=== PATIENT | male | born 1955 | race Two or more races ===

== ENCOUNTER 2019-08-29 10:14 | Inpatient (IN) | payer MEDICAID ==
[~2019-08-29] VITALS: Ht 162.6 cm; Wt 61.5 kg
[2019-08-29] MEDS ORDERED: IPRATROPIUM BROMIDE 0.5 MG/2.5 ML NEB SOLUTION NEB ONE (10:30)
[2019-08-29] MEDS ORDERED: ALBUTEROL SULFATE 5 MG/ML 20 ML NEB SOLN [BULK] NEB ONE (10:30)
[2019-08-29] MEDS ORDERED: 0.9% SODIUM CHLORIDE 10 ML SYRINGE IVP PRN (10:30)
[2019-08-29 10:37] LABS: ABG A-A DIFF O2 209.5 mmHg (10-20.0); ABG BASE EXCESS -0.6 mmol/L (-2.0-3.0); ABG CARBOXYHEMOGLOBIN 0.8 % (0.0-1.5); ABG HCO3 21.3 mmol/L (22.0-26.0); ABG METHEMOGLOBIN 0.3 % (0.0-1.5); ABG OXYGEN CONTENT 22.6 mL/dL (15.0-23.0); ABG OXYGEN SATURATION 99.6 % (95.0-98.0); ABG OXYHEMOGLOBIN 98.5 % (94.0-100.0); ABG TOTAL HEMOGLOBIN 15.5 G/dL (12.0-18.0); PO2, ARTERIAL BG 418.7 mmHg (66.0-74.0); SOURCE, BLOOD GAS ARTERIAL; TEMPERATURE, FAHRENHEIT, BG 94.2 FAHREN (96.0-98.6)
[2019-08-29 10:38] LABS: ABG PCO2 91 mmHg (35-45); ABG PH 7.112 (7.35-7.450); SITE, BLOOD GAS RT RADIAL
[2019-08-29 10:39] LABS: INSPIRATORY TIME, BG 0.9 SEC; O2 DEVICE,BLOOD GAS BIPAP (ROOM AIR); VENT MODE, BG Press. Support Vent. (ROOM AIR); VT, ABG 539 ml
[2019-08-29] MEDS ORDERED: SODIUM CHLORIDE 0.9% 2,000 ML IV ONE (10:45)
[2019-08-29 11:05] LABS: HEMOGLOBIN 15.5 g/dL (13.5-17.5); MEAN CORPUSCULAR HEMOGLOBIN 29.9 pg (26.0-34.0); MEAN CORPUSCULAR HGB CONC 32.3 G/dL (31.0-37.0); MEAN CORPUSCULAR VOLUME 93 fL (80-100); PLATELET COUNT (AUTO) 175 K/uL (150-450); RED BLOOD CELL COUNT(AUTO) 5.18 MIL/uL (4.50-5.90); RED CELL DISTRIBUTION WIDTH 13.5 % (11.5-14.5)
[2019-08-29 11:11] LABS: APPEARANCE,URINE CLOUDY (CLEAR); BILIRUBIN,URINE NEGATIVE (NEGATIVE); GLUCOSE, URINE (UA) 100 mg/dL (NEGATIVE); KETONES,URINE NEGATIVE (NEGATIVE); LEUKOCYTE ESTERASE ,URINE NEGATIVE (NEGATIVE); NITRATE,URINE NEGATIVE (NEGATIVE); OCCULT BLOOD,URINE LARGE (NEGATIVE); PROTEIN,URINE SEE CONFIRM (NEGATIVE)
[2019-08-29 11:15] LABS: SULFOSALICYLIC ACID,URINE 3+ (Negative)
[2019-08-29] MEDS ORDERED: MethylPREDNISolone SOD SUCC 125 MG/2 ML VIAL IVP ONE (11:15)
[2019-08-29 11:19] LABS: BACTERIA,URINE Few /HPF (None Seen); SQUAMOUS EPITHELIAL CELL,UR Few /LPF (None Seen)
[2019-08-29 11:30] LABS: INFLUENZA TYPE A NEGATIVE FOR TYPE A (NEGATIVE); INFLUENZA TYPE B NEGATIVE FOR TYPE B (NEGATIVE)
[2019-08-29 11:36] LABS: INR 1.5 (0.9-1.1); PROTHROMBIN TIME 15.4 SEC (9.4-11.6)
[2019-08-29 11:41] LABS: ALBUMIN 3.3 g/dL (3.4-5.0); ALKALINE PHOSPHATASE 153 U/L (46-116); ANION GAP 8 mmol/L (8-16); CALCIUM, TOTAL 8.2 mg/dL (8.8-10.5); CARBON DIOXIDE 32 mmol/L (22-29); CHLORIDE 94 mmol/L (98-107); CREATINE KINASE, TOTAL ONLY 398 U/L (39-308); CREATININE 2.37 mg/dL (0.60-1.30); GLOMERULAR FILTR. RATE CALC 24 mL/min (>60); POTASSIUM 4.1 mmol/L (3.5-5.1); SODIUM SERUM 134 mmol/L (136-145); TOTAL PROTEIN, SERUM 8.3 g/dL (6.4-8.2)
[2019-08-29] MEDS ORDERED: PIPERACILLIN/TAZO 3.375 GM/D5W 50 ML IV ONE (11:45)
[2019-08-29] MEDS ORDERED: VANCOMYCIN HCL 1.5 GM in DEXTROSE 5%-WATER 250 ML IV ONE (11:45)
[2019-08-29 11:46] LABS: GLUCOSE,RANDOM 444 mg/dL (70-110); UREA NITROGEN, BLOOD 106 mg/dL (7-18)
[2019-08-29 11:51] LABS: BAND NEUTROPHILS % (MANUAL) 21 % (0-5); LYMPHOCYTES % (MANUAL) 10 % (22-44); METAMYELOCYTES % 1 % (0-0); MONOCYTES % (MANUAL) 13 % (2-9); REACTIVE LYMPHOCYTES 1 % (0-0); SEGMENTED NEUTROPHILS % 54 % (40-70)
[2019-08-29 11:57] LABS: ALANINE AMINOTRANSFERASE 392 U/L (12-78); ASPARTATE AMINOTRANSFERASE 452 U/L (15-37)
[2019-08-29] MEDS ORDERED: LORazepam 2 MG/ML VIAL IVP ONE (12:00)
[2019-08-29] MEDS ORDERED: SODIUM CHLORIDE 0.9% 1,000 ML IV ONE (12:30)
[2019-08-29 12:32] LABS: B-TYPE NATRIURETIC PEPTIDE 1620 pg/mL (0-100)
[2019-08-29 12:50] LABS: D-DIMER 2.87 mg/L FEU (0.00-0.50)
[2019-08-29] MEDS ORDERED: HEPARIN SODIUM 25000 UNITS/D5W 250 ML IV PRN (13:26)
[2019-08-29] MEDS ORDERED: HEPARIN SODIUM,PORCINE 5,000 UNITS/ML VIAL IVP PRN ×2 (13:30)
[2019-08-29] MEDS ORDERED: HEPARIN SODIUM,PORCINE 5,000 UNITS/ML VIAL IVP ONE (13:30)
[2019-08-29 13:56] LABS: ABG A-A DIFF O2 166.3 mmHg (10-20.0); ABG CARBOXYHEMOGLOBIN 0.7 % (0.0-1.5); ABG HCO3 21.8 mmol/L (22.0-26.0); ABG METHEMOGLOBIN 0.5 % (0.0-1.5); ABG OXYGEN CONTENT 20.2 mL/dL (15.0-23.0); ABG OXYGEN SATURATION 98.3 % (95.0-98.0); ABG OXYHEMOGLOBIN 97.1 % (94.0-100.0); ABG TOTAL HEMOGLOBIN 14.6 G/dL (12.0-18.0); PO2, ARTERIAL BG 152.3 mmHg (66.0-74.0); SOURCE, BLOOD GAS ARTERIAL; TEMPERATURE, FAHRENHEIT, BG 96.7 FAHREN (96.0-98.6)
[2019-08-29 13:57] LABS: ABG PCO2 101 mmHg (35-45); ABG PH 7.086 (7.35-7.450); SITE, BLOOD GAS RT RADIAL
[2019-08-29 13:58] LABS: O2 DEVICE,BLOOD GAS BIPAP (ROOM AIR)
[2019-08-29] MEDS ORDERED: ONDANSETRON HCL 4 MG/2 ML VIAL IVP PRN ×2 (14:00→17:30)
[2019-08-29] MEDS ORDERED: ACETAMINOPHEN 325 MG TABLET PO PRN ×2 (14:00→17:30)
[2019-08-29] MEDS ORDERED: RAPID SEQUENCE KIT [RSI] 1 EACH KIT ONE (14:05)
[2019-08-29] MEDS ORDERED: SUCCINYLCHOLINE CHLORIDE 20 MG/ML 10 ML VIAL ONE (14:06)
[2019-08-29] MEDS ORDERED: ROCURONIUM BROMIDE 10 MG/ML 5 ML VIAL ONE (14:06)
[2019-08-29 14:07] LABS: HEMATOCRIT 44.4 % (41-53); HEMOGLOBIN 14.5 g/dL (13.5-17.5); MEAN CORPUSCULAR HEMOGLOBIN 30.3 pg (26.0-34.0); MEAN CORPUSCULAR HGB CONC 32.7 G/dL (31.0-37.0); MEAN CORPUSCULAR VOLUME 93 fL (80-100); PLATELET COUNT (AUTO) 149 K/uL (150-450); RED BLOOD CELL COUNT(AUTO) 4.79 MIL/uL (4.50-5.90); RED CELL DISTRIBUTION WIDTH 13.3 % (11.5-14.5)
[2019-08-29] MEDS: PROPOFOL 1000 MG/ISO-OSM 100 ML IV PRN ×2 (14:28→23:37)
[2019-08-29 14:38] LABS: INR 1.4 (0.9-1.1); PROTHROMBIN TIME 14.1 SEC (9.4-11.6)
[2019-08-29] MEDS ORDERED: [UNRECOGNIZED DRUG - REMARK] IV ONE ×3 (15:00)
[2019-08-29 15:15] LABS: BAND NEUTROPHILS % (MANUAL) 9 % (0-5); LYMPHOCYTES % (MANUAL) 8 % (22-44); MONOCYTES % (MANUAL) 13 % (2-9); SEGMENTED NEUTROPHILS % 70 % (40-70)
[2019-08-29 15:32] LABS: AMPHET/METH SCREEN,URINE NEGATIVE (NEGATIVE); BARBITURATE SCREEN, URINE NEGATIVE (NEGATIVE); BENZODIAZEPINES SCREEN,URINE NEGATIVE (NEGATIVE); CANNABINOID SCREEN,URINE NEGATIVE (NEGATIVE); COCAINE SCREEN,URINE NEGATIVE (NEGATIVE); CREATININE,URINE RANDOM 154.3 mg/dL (30.0-125.0); METHADONE SCREEN, URINE NEGATIVE (NEGATIVE); OPIATE SCREEN,URINE NEGATIVE (NEGATIVE); SODIUM,URINE RANDOM 17 mmol/l (20-110)
[2019-08-29 15:33] LABS: PHENCYCLIDINE SCREEN,URINE NEGATIVE (NEGATIVE)
[2019-08-29 16:48] LABS: ABG BASE EXCESS 2.6 mmol/L (-2.0-3.0); ABG CARBOXYHEMOGLOBIN 0.5 % (0.0-1.5); ABG HCO3 24.7 mmol/L (22.0-26.0); ABG METHEMOGLOBIN 0.5 % (0.0-1.5); ABG OXYGEN SATURATION 98.1 % (95.0-98.0); ABG OXYHEMOGLOBIN 97.1 % (94.0-100.0); ABG TOTAL HEMOGLOBIN 14.5 G/dL (12.0-18.0); PO2, ARTERIAL BG 137.8 mmHg (66.0-74.0); SOURCE, BLOOD GAS ARTERIAL; TEMPERATURE, FAHRENHEIT, BG 98.4 FAHREN (96.0-98.6)
[2019-08-29 16:49] LABS: ABG PCO2 78 mmHg (35-45); ABG PH 7.209 (7.35-7.450); O2 DEVICE,BLOOD GAS VENTILATOR (ROOM AIR); PEEP,BG 5 cm H2O; SITE, BLOOD GAS RT RADIAL; VENT MODE, BG Press. Control Vent (ROOM AIR)
[2019-08-29] MEDS ORDERED: PHENYLEPHRINE HCL IN 0.9% NACL 400 MCG/10 ML SYRINGE IVP ONE (16:59)
[2019-08-29] MEDS ORDERED: PHENYLEPHRINE 200 MG/D5%-WATER 250 ML IV PRN (17:15)
[2019-08-29] MEDS ORDERED: ETOMIDATE 2 MG/ML 10 ML VIAL IV ONE (17:24)
[2019-08-29] MEDS ORDERED: MORPHINE SULFATE 2 MG/ML SYRINGE IVP PRN (17:30)
[2019-08-29] MEDS ORDERED: DEXTROSE 50%-WATER 25 GM/50 ML SYRINGE IVP PRN (17:30)
[2019-08-29] MEDS ORDERED: IPRATROPIUM BROMIDE 0.5 MG/2.5 ML NEB SOLUTION NEB PRN (17:30)
[2019-08-29] MEDS ORDERED: MAGNESIUM HYDROXIDE SUSPENSION 30 ML UDCUP PO PRN (17:30)
[2019-08-29] MEDS ORDERED: ZOLPIDEM TARTRATE 5 MG TABLET PO PRN (17:30)
[2019-08-29] MEDS ORDERED: ALBUTEROL SULFATE 2.5 MG/0.5 ML NEB SOLUTION NEB PRN (17:30)
[2019-08-29] MEDS ORDERED: BISACODYL 10 MG RECTAL RECTAL SUPPOSITORY PR PRN (17:30)
[2019-08-29] MEDS: MethylPREDNISolone SOD SUCC 125 MG/2 ML VIAL IVP SCH (18:25)
[2019-08-29 20:55] VITALS: BP 102/66
[2019-08-29 21:13] LABS: GLUCOSE,POINT OF CARE 420 MG/DL (70-110)
[2019-08-29] MEDS: ALBUTEROL SULFATE 2.5 MG/0.5 ML NEB SOLUTION NEB SCH (21:18)
[2019-08-29] MEDS: IPRATROPIUM BROMIDE 0.5 MG/2.5 ML NEB SOLUTION NEB SCH (21:18)
[2019-08-29] MEDS: AZITHROMYCIN 500 MG/NS 250 ML IV SCH (21:20)
[2019-08-29] MEDS: PIPERACILLIN SODIUM/TAZOBACTAM 2.25 GM in DEXTROSE 5%-WATER 50 ML IV SCH (21:20)
[2019-08-29] MEDS: INSULIN LISPRO 100 UNITS/ML SQ PRN (21:25)
[2019-08-29] MEDS: FentaNYL CITRATE PF 500 MCG in DEXTROSE 5%-WATER 90 ML IV PRN (21:28)
[2019-08-29] MEDS: DOCUSATE SODIUM 100 MG CAPSULE PO SCH (21:45)
[2019-08-29] MEDS: BENZONATATE 100 MG CAPSULE PO SCH (21:45)
[2019-08-29] MEDS: GuaiFENesin SR 600 MG ER TABLET PO SCH (21:45)
[2019-08-29 21:50] LABS: GLUCOSE,POINT OF CARE 394 MG/DL (70-110)
[2019-08-29] MEDS ORDERED: INFLUENZA VIRUS VACCINE QVS 2019-20 (3YR+)/PF 60 MCG/0.5 ML SYRINGE IM ONE (23:00)
[2019-08-29] MEDS ORDERED: PNEUMOCOCCAL VACCINE POLYVALENT 0.5 ML VIAL [PPSV23] IM ONE (23:00)
[2019-08-30] VITALS: BP 93/50
[2019-08-30] MEDS ORDERED: HEPARIN SODIUM,PORCINE 5,000 UNITS/ML VIAL SQ SCH
[2019-08-30] MEDS: MethylPREDNISolone SOD SUCC 125 MG/2 ML VIAL IVP SCH ×5 (00:07→23:12)
[2019-08-30] MEDS: INSULIN LISPRO 100 UNITS/ML SQ PRN ×4 (00:42→17:33)
[2019-08-30] MEDS: IPRATROPIUM BROMIDE 0.5 MG/2.5 ML NEB SOLUTION NEB SCH ×4 (01:02→19:30)
[2019-08-30] MEDS: ALBUTEROL SULFATE 2.5 MG/0.5 ML NEB SOLUTION NEB SCH ×4 (01:02→19:30)
[2019-08-30 01:21] VITALS: BP 101/53
[2019-08-30] MEDS ORDERED: HEPARIN SODIUM 25000 UNITS/D5W 250 ML IV PRN (01:47)
[2019-08-30] MEDS ORDERED: HEPARIN SODIUM,PORCINE 5,000 UNITS/ML VIAL IVP PRN ×2 (02:00)
[2019-08-30] MEDS: PIPERACILLIN SODIUM/TAZOBACTAM 2.25 GM in DEXTROSE 5%-WATER 50 ML IV SCH ×4 (02:48→20:55)
[2019-08-30] MEDS: PROPOFOL 1000 MG/ISO-OSM 100 ML IV PRN ×4 (04:34→23:13)
[2019-08-30 05:42] LABS: CALCIUM, TOTAL 7.5 mg/dL (8.8-10.5); CREATININE 1.76 mg/dL (0.60-1.30); POTASSIUM 3.6 mmol/L (3.5-5.1)
[2019-08-30 06:52] LABS: HEMATOCRIT 37.3 % (41-53); HEMOGLOBIN 12.4 g/dL (13.5-17.5); MEAN CORPUSCULAR HEMOGLOBIN 30.1 pg (26.0-34.0); MEAN CORPUSCULAR HGB CONC 33.3 G/dL (31.0-37.0); MEAN CORPUSCULAR VOLUME 90 fL (80-100); PLATELET COUNT (AUTO) 152 K/uL (150-450); RED BLOOD CELL COUNT(AUTO) 4.12 MIL/uL (4.50-5.90); RED CELL DISTRIBUTION WIDTH 13.3 % (11.5-14.5)
[2019-08-30 07:10] LABS: BAND NEUTROPHILS % (MANUAL) 7 % (0-5); LYMPHOCYTES % (MANUAL) 11 % (22-44); MONOCYTES % (MANUAL) 6 % (2-9); SEGMENTED NEUTROPHILS % 76 % (40-70)
[2019-08-30 08:00] VITALS: BP 92/49
[2019-08-30] MEDS ORDERED: VANCOMYCIN HCL 750 MG in DEXTROSE 5%-WATER 250 ML IV SCH (08:00)
[2019-08-30] MEDS: PANTOPRAZOLE SODIUM 40 MG DR TABLET PO SCH (08:41)
[2019-08-30] MEDS: DOCUSATE SODIUM 100 MG CAPSULE PO SCH ×2 (08:41→20:55)
[2019-08-30] MEDS: GuaiFENesin SR 600 MG ER TABLET PO SCH ×2 (08:41→20:55)
[2019-08-30] MEDS: BENZONATATE 100 MG CAPSULE PO SCH ×3 (08:41→20:55)
[2019-08-30] MEDS ORDERED: [UNRECOGNIZED DRUG - REMARK] IV SCH ×4 (11:30)
[2019-08-30 11:45] LABS: ABG A-A DIFF O2 114.3 mmHg (10-20.0); ABG BASE EXCESS 5.8 mmol/L (-2.0-3.0); ABG CARBOXYHEMOGLOBIN 0.6 % (0.0-1.5); ABG HCO3 29.9 mmol/L (22.0-26.0); ABG METHEMOGLOBIN 0.3 % (0.0-1.5); ABG OXYGEN CONTENT 20.7 mL/dL (15.0-23.0); ABG OXYGEN SATURATION 98.7 % (95.0-98.0); ABG OXYHEMOGLOBIN 97.8 % (94.0-100.0); ABG PCO2 35 mmHg (35-45); ABG PH 7.528 (7.35-7.450); ABG TOTAL HEMOGLOBIN 14.9 G/dL (12.0-18.0); PO2, ARTERIAL BG 130.5 mmHg (66.0-74.0); SOURCE, BLOOD GAS ARTERIAL; TEMPERATURE, FAHRENHEIT, BG 98.8 FAHREN (96.0-98.6)
[2019-08-30 12:00] VITALS: BP 100/52
[2019-08-30 12:21] LABS: SITE, BLOOD GAS RT RADIAL
[2019-08-30 12:22] LABS: O2 DEVICE,BLOOD GAS VENTILATOR (ROOM AIR); PEEP,BG 5 cm H2O; SPONTANEOUS VT, BG 632 ml; VENT MODE, BG Press. Control Vent (ROOM AIR)
[2019-08-30] MEDS: FentaNYL CITRATE PF 500 MCG in DEXTROSE 5%-WATER 90 ML IV PRN (12:32)
[2019-08-30 16:00] VITALS: BP 111/56
[2019-08-30 16:38] LABS: ABG A-A DIFF O2 133.8 mmHg (10-20.0); ABG BASE EXCESS 2.9 mmol/L (-2.0-3.0); ABG CARBOXYHEMOGLOBIN 0.4 % (0.0-1.5); ABG HCO3 27.1 mmol/L (22.0-26.0); ABG METHEMOGLOBIN 0.3 % (0.0-1.5); ABG OXYGEN SATURATION 98.2 % (95.0-98.0); ABG OXYHEMOGLOBIN 97.5 % (94.0-100.0); ABG PCO2 37 mmHg (35-45); ABG PH 7.473 (7.35-7.450); PO2, ARTERIAL BG 108.9 mmHg (66.0-74.0); SOURCE, BLOOD GAS ARTERIAL; TEMPERATURE, FAHRENHEIT, BG 98.6 FAHREN (96.0-98.6)
[2019-08-30 16:58] LABS: INSPIRATORY TIME, BG 1 SEC; O2 DEVICE,BLOOD GAS VENTILATOR (ROOM AIR); PEEP,BG 5 cm H2O; SITE, BLOOD GAS RT RADIAL; SPONTANEOUS VT, BG 530 ml; VENT MODE, BG Press. Control Vent (ROOM AIR)
[2019-08-30] MEDS: [UNRECOGNIZED DRUG - REMARK] IV SCH ×3 (17:27)
[2019-08-30 17:36] LABS: GLUCOSE,POINT OF CARE 281 MG/DL (70-110)
[2019-08-30 17:36] LABS: GLUCOSE,POINT OF CARE 361 MG/DL (70-110)
[2019-08-30 17:36] LABS: GLUCOSE,POINT OF CARE 254 MG/DL (70-110)
[2019-08-30 17:36] LABS: GLUCOSE,POINT OF CARE 195 MG/DL (70-110)
[2019-08-30 20:00] VITALS: BP 112/52
[2019-08-30] MEDS: AZITHROMYCIN 500 MG/NS 250 ML IV SCH (20:15)
[2019-08-30] MEDS: HYPROMELLOSE 0.5% 15 ML OPHTHALMIC SOLUTION OU PRN (23:23)
[2019-08-30] MEDS: INSULIN REGULAR, HUMAN 100 UNITS/ML SQ PRN (23:27)
[2019-08-30 23:41] LABS: GLUCOSE,POINT OF CARE 199 MG/DL (70-110)
[2019-08-31] VITALS: BP 91/43
[2019-08-31] MEDS: ALBUTEROL SULFATE 2.5 MG/0.5 ML NEB SOLUTION NEB SCH ×4 (01:53→20:05)
[2019-08-31] MEDS: IPRATROPIUM BROMIDE 0.5 MG/2.5 ML NEB SOLUTION NEB SCH ×4 (01:53→20:05)
[2019-08-31] MEDS: PIPERACILLIN SODIUM/TAZOBACTAM 2.25 GM in DEXTROSE 5%-WATER 50 ML IV SCH ×4 (02:26→21:41)
[2019-08-31] MEDS ORDERED: SODIUM CHLORIDE 0.9% 500 ML IV ONE (02:32)
[2019-08-31 03:07] LABS: HIV 1-2 SCREEN 4TH GEN W/RFLX Non Reactive (Non Reactive)
[2019-08-31] MEDS: PROPOFOL 1000 MG/ISO-OSM 100 ML IV PRN ×4 (03:34→22:01)
[2019-08-31] MEDS: HYPROMELLOSE 0.5% 15 ML OPHTHALMIC SOLUTION OU PRN ×3 (03:46→21:59)
[2019-08-31 04:00] VITALS: BP 96/46
[2019-08-31 04:54] LABS: HEMATOCRIT 37.5 % (41-53); HEMOGLOBIN 12.5 g/dL (13.5-17.5); MEAN CORPUSCULAR HEMOGLOBIN 30.5 pg (26.0-34.0); MEAN CORPUSCULAR HGB CONC 33.4 G/dL (31.0-37.0); MEAN CORPUSCULAR VOLUME 92 fL (80-100); PLATELET COUNT (AUTO) 155 K/uL (150-450); RED BLOOD CELL COUNT(AUTO) 4.09 MIL/uL (4.50-5.90); RED CELL DISTRIBUTION WIDTH 13.9 % (11.5-14.5)
[2019-08-31 05:13] LABS: ALBUMIN 2.4 g/dL (3.4-5.0); BILIRUBIN,TOTAL 0.8 mg/dL (0.1-1.0); CALCIUM, TOTAL 7.2 mg/dL (8.8-10.5); CREATININE 1.85 mg/dL (0.60-1.30); MAGNESIUM 3.2 mg/dL (1.80-2.40); PHOSPHORUS 3.3 mg/dL (2.5-4.9); POTASSIUM 4.3 mmol/L (3.5-5.1); VANCOMYCIN,RANDOM 13.1 mcg/mL (25.0-50.0)
[2019-08-31] MEDS: MethylPREDNISolone SOD SUCC 125 MG/2 ML VIAL IVP SCH ×3 (05:13→18:30)
[2019-08-31] MEDS: INSULIN REGULAR, HUMAN 100 UNITS/ML SQ PRN (05:14)
[2019-08-31 05:20] LABS: BAND NEUTROPHILS % (MANUAL) 13 % (0-5); LYMPHOCYTES % (MANUAL) 1 % (22-44); MONOCYTES % (MANUAL) 4 % (2-9); SEGMENTED NEUTROPHILS % 82 % (40-70)
[2019-08-31 05:34] LABS: GLUCOSE,POINT OF CARE 269 MG/DL (70-110)
[2019-08-31] MEDS: [UNRECOGNIZED DRUG - REMARK] IV SCH ×6 (07:42→21:55)
[2019-08-31] MEDS: VANCOMYCIN HCL 1.25 GM in DEXTROSE 5%-WATER 250 ML IV SCH (07:45)
[2019-08-31 08:00] VITALS: BP 101/48
[2019-08-31] MEDS: FentaNYL CITRATE PF 500 MCG in DEXTROSE 5%-WATER 90 ML IV PRN (08:26)
[2019-08-31] MEDS: DOCUSATE SODIUM 100 MG CAPSULE PO SCH ×2 (09:20→21:41)
[2019-08-31] MEDS: PANTOPRAZOLE SODIUM 40 MG DR TABLET PO SCH (09:21)
[2019-08-31] MEDS: GuaiFENesin SR 600 MG ER TABLET PO SCH ×2 (09:21→21:41)
[2019-08-31] MEDS: BENZONATATE 100 MG CAPSULE PO SCH ×3 (09:21→21:41)
[2019-08-31] MEDS ORDERED: DEXTROSE 50%-WATER 25 GM/50 ML SYRINGE IVP PRN (11:00)
[2019-08-31 12:00] VITALS: BP 101/48
[2019-08-31] MEDS: INSULIN LISPRO 100 UNITS/ML SQ PRN ×3 (13:20→20:53)
[2019-08-31 14:42] LABS: ABG A-A DIFF O2 112.7 mmHg (10-20.0); ABG BASE EXCESS 0.7 mmol/L (-2.0-3.0); ABG CARBOXYHEMOGLOBIN 0.5 % (0.0-1.5); ABG HCO3 25.3 mmol/L (22.0-26.0); ABG METHEMOGLOBIN 0.3 % (0.0-1.5); ABG OXYGEN CONTENT 17.7 mL/dL (15.0-23.0); ABG OXYGEN SATURATION 97.2 % (95.0-98.0); ABG OXYHEMOGLOBIN 96.4 % (94.0-100.0); ABG PCO2 37 mmHg (35-45); ABG PH 7.446 (7.35-7.450); PO2, ARTERIAL BG 94.2 mmHg (66.0-74.0); SOURCE, BLOOD GAS ARTERIAL; TEMPERATURE, FAHRENHEIT, BG 98.6 FAHREN (96.0-98.6)
[2019-08-31 14:43] LABS: O2 DEVICE,BLOOD GAS VENTILATOR (ROOM AIR); PEEP,BG 5 cm H2O; SITE, BLOOD GAS RT RADIAL; VENT MODE, BG PCV/AC (ROOM AIR); VT, ABG 573 ml
[2019-08-31 14:44] LABS: SPONTANEOUS VT, BG 574 ml
[2019-08-31 16:00] VITALS: BP 101/48
[2019-08-31 20:00] VITALS: BP 132/63
[2019-08-31] MEDS: AZITHROMYCIN 500 MG/NS 250 ML IV SCH (20:18)
[2019-08-31] MEDS: INSULIN GLARGINE,HUM.REC.ANLOG 100 UNITS/ML SQ SCH (20:52)
[2019-08-31 22:51] LABS: GLUCOSE,POINT OF CARE 342 MG/DL (70-110)
[2019-08-31 22:51] LABS: GLUCOSE,POINT OF CARE 371 MG/DL (70-110)
[2019-08-31 22:51] LABS: GLUCOSE,POINT OF CARE 332 MG/DL (70-110)
[2019-09-01] VITALS (7 sets, daily range): BP systolic 108–125; BP diastolic 52–64
[2019-09-01] MEDS: INSULIN LISPRO 100 UNITS/ML SQ PRN ×5 (00:34→21:10)
[2019-09-01] MEDS ORDERED: SODIUM CHLORIDE 0.9% 250 ML IV ONE (01:24)
[2019-09-01] MEDS: ALBUTEROL SULFATE 2.5 MG/0.5 ML NEB SOLUTION NEB SCH ×4 (02:28→19:45)
[2019-09-01] MEDS: IPRATROPIUM BROMIDE 0.5 MG/2.5 ML NEB SOLUTION NEB SCH ×4 (02:28→19:45)
[2019-09-01] MEDS: PIPERACILLIN SODIUM/TAZOBACTAM 2.25 GM in DEXTROSE 5%-WATER 50 ML IV SCH ×4 (02:56→21:11)
[2019-09-01] MEDS: PROPOFOL 1000 MG/ISO-OSM 100 ML IV PRN (02:57)
[2019-09-01 05:35] LABS: CALCIUM, TOTAL 7.4 mg/dL (8.8-10.5); CREATININE 1.45 mg/dL (0.60-1.30); POTASSIUM 4.8 mmol/L (3.5-5.1)
[2019-09-01] MEDS: MethylPREDNISolone SOD SUCC 125 MG/2 ML VIAL IVP SCH ×4 (06:06→18:51)
[2019-09-01 06:50] LABS: GLUCOSE,POINT OF CARE 218 MG/DL (70-110)
[2019-09-01 06:50] LABS: GLUCOSE,POINT OF CARE 189 MG/DL (70-110)
[2019-09-01] MEDS: VANCOMYCIN HCL 1.25 GM in DEXTROSE 5%-WATER 250 ML IV SCH (08:30)
[2019-09-01 09:48] LABS: MAGNESIUM 2.9 mg/dL (1.80-2.40)
[2019-09-01] MEDS: DOCUSATE SODIUM 100 MG CAPSULE PO SCH ×2 (10:35→20:57)
[2019-09-01] MEDS: PANTOPRAZOLE SODIUM 40 MG DR TABLET PO SCH (10:35)
[2019-09-01] MEDS: BENZONATATE 100 MG CAPSULE PO SCH ×3 (10:35→21:11)
[2019-09-01] MEDS: GuaiFENesin SR 600 MG ER TABLET PO SCH ×2 (10:35→21:11)
[2019-09-01] MEDS: FentaNYL CITRATE PF 500 MCG in DEXTROSE 5%-WATER 90 ML IV PRN (11:20)
[2019-09-01 14:11] LABS: QUANTIFERON+, Nil Value 0.02 IU/mL; QUANTIFERON+,Mitogen Value 0.03 IU/mL; QUANTIFERON+,TB1 Antigen Value 0.02 IU/mL; QUANTIFERON, TB GOLD PLUS Indeterminate (Negative)
[2019-09-01 18:58] LABS: GLUCOSE,POINT OF CARE 292 MG/DL (70-110)
[2019-09-01 18:58] LABS: GLUCOSE,POINT OF CARE 312 MG/DL (70-110)
[2019-09-01] MEDS: AZITHROMYCIN 500 MG/NS 250 ML IV SCH (20:04)
[2019-09-01] MEDS ORDERED: SODIUM CHLORIDE 0.9% 100 ML ONE ×2 (21:03→21:04)
[2019-09-01] MEDS: INSULIN GLARGINE,HUM.REC.ANLOG 100 UNITS/ML SQ SCH (21:09)
[2019-09-01 21:35] LABS: APPEARANCE,URINE CLOUDY (CLEAR); BILIRUBIN,URINE NEGATIVE (NEGATIVE); GLUCOSE, URINE (UA) >=1000 mg/dL (NEGATIVE); KETONES,URINE NEGATIVE (NEGATIVE); LEUKOCYTE ESTERASE ,URINE NEGATIVE (NEGATIVE); NITRATE,URINE NEGATIVE (NEGATIVE); OCCULT BLOOD,URINE LARGE (NEGATIVE); PROTEIN,URINE TRACE (NEGATIVE)
[2019-09-01 22:11] LABS: WBC,URINE 0-2 /HPF (0-5)
[2019-09-01 22:12] LABS: BACTERIA,URINE Few /HPF (None Seen); SQUAMOUS EPITHELIAL CELL,UR Few /LPF (None Seen); URIC ACID CRYSTALS,URINE Many /LPF (None Seen)
[2019-09-02] VITALS: BP 114/49
[2019-09-02] MEDS: MethylPREDNISolone SOD SUCC 125 MG/2 ML VIAL IVP SCH ×4 (00:32→18:08)
[2019-09-02] MEDS: INSULIN LISPRO 100 UNITS/ML SQ PRN ×5 (00:33→23:34)
[2019-09-02] MEDS: PROPOFOL 1000 MG/ISO-OSM 100 ML IV PRN ×4 (00:36→20:50)
[2019-09-02] MEDS: ALBUTEROL SULFATE 2.5 MG/0.5 ML NEB SOLUTION NEB SCH ×4 (02:33→20:53)
[2019-09-02] MEDS: IPRATROPIUM BROMIDE 0.5 MG/2.5 ML NEB SOLUTION NEB SCH ×4 (02:33→20:53)
[2019-09-02 03:06] LABS: GLUCOSE,POINT OF CARE 207 MG/DL (70-110)
[2019-09-02 03:06] LABS: GLUCOSE,POINT OF CARE 328 MG/DL (70-110)
[2019-09-02] MEDS: PIPERACILLIN SODIUM/TAZOBACTAM 2.25 GM in DEXTROSE 5%-WATER 50 ML IV SCH ×2 (03:54→08:27)
[2019-09-02 04:00] VITALS: BP 137/54
[2019-09-02 05:04] LABS: BASOPHILS % (AUTO) 0.1 % (0.0-2.0); EOSINOPHILS % (AUTO) 0 % (1.0-6.0); HEMATOCRIT 40.8 % (41-53); HEMOGLOBIN 13.2 g/dL (13.5-17.5); LYMPHOCYTES # (AUTO) 0.4 K/uL (1.0-4.8); LYMPHOCYTES % (AUTO) 2.1 % (22.0-44.0); MEAN CORPUSCULAR HEMOGLOBIN 29.5 pg (26.0-34.0); MEAN CORPUSCULAR HGB CONC 32.4 G/dL (31.0-37.0); MEAN CORPUSCULAR VOLUME 91 fL (80-100); MONOCYTES # (AUTO) 1.6 K/uL (0.1-1.0); MONOCYTES % (AUTO) 8.1 % (2.0-9.0); NEUTROPHILS # (AUTO) 17.4 K/uL (1.8-7.7); PLATELET COUNT (AUTO) 139 K/uL (150-450); RED BLOOD CELL COUNT(AUTO) 4.48 MIL/uL (4.50-5.90); RED CELL DISTRIBUTION WIDTH 13.8 % (11.5-14.5)
[2019-09-02 05:06] LABS: NEUTROPHILS % (AUTO) 89.7 % (40.0-70.0)
[2019-09-02 05:20] LABS: ALANINE AMINOTRANSFERASE 744 U/L (12-78); ALBUMIN 2.3 g/dL (3.4-5.0); ALKALINE PHOSPHATASE 115 U/L (46-116); ANION GAP 2 mmol/L (8-16); ASPARTATE AMINOTRANSFERASE 146 U/L (15-37); BILIRUBIN,TOTAL 0.5 mg/dL (0.1-1.0); CALCIUM, TOTAL 7.6 mg/dL (8.8-10.5); CARBON DIOXIDE 32 mmol/L (22-29); CHLORIDE 106 mmol/L (98-107); CREATININE 1.11 mg/dL (0.60-1.30); GLOMERULAR FILTR. RATE CALC > 60 mL/min (>60); GLUCOSE,RANDOM 248 mg/dL (70-110); SODIUM SERUM 140 mmol/L (136-145); TOTAL PROTEIN, SERUM 6.1 g/dL (6.4-8.2); UREA NITROGEN, BLOOD 44 mg/dL (7-18)
[2019-09-02 05:26] LABS: GLUCOSE,POINT OF CARE 235 MG/DL (70-110)
[2019-09-02 08:00] VITALS: BP 154/62
[2019-09-02] MEDS ORDERED: SODIUM CHLORIDE 0.9% 250 ML IV ONE (08:11)
[2019-09-02] MEDS: VANCOMYCIN HCL 1.25 GM in DEXTROSE 5%-WATER 250 ML IV SCH (08:27)
[2019-09-02] MEDS: DOCUSATE SODIUM 100 MG CAPSULE PO SCH ×2 (08:28→19:15)
[2019-09-02] MEDS: GuaiFENesin SR 600 MG ER TABLET PO SCH ×2 (09:39→20:22)
[2019-09-02] MEDS: PANTOPRAZOLE SODIUM 40 MG DR TABLET PO SCH (09:39)
[2019-09-02] MEDS: BENZONATATE 100 MG CAPSULE PO SCH ×3 (09:39→20:22)
[2019-09-02] MEDS: FentaNYL CITRATE PF 500 MCG in DEXTROSE 5%-WATER 90 ML IV PRN (10:47)
[2019-09-02 12:00] VITALS: BP 126/48
[2019-09-02 16:00] VITALS: BP 136/56
[2019-09-02] MEDS: PIPERACILLIN/TAZO 3.375 GM/D5W 50 ML IV SCH ×2 (16:20→21:46)
[2019-09-02 17:39] LABS: ABG A-A DIFF O2 121.8 mmHg (10-20.0); ABG BASE EXCESS 4.2 mmol/L (-2.0-3.0); ABG CARBOXYHEMOGLOBIN 0.7 % (0.0-1.5); ABG HCO3 27.7 mmol/L (22.0-26.0); ABG METHEMOGLOBIN 0.3 % (0.0-1.5); ABG OXYGEN CONTENT 19.2 mL/dL (15.0-23.0); ABG OXYGEN SATURATION 95.9 % (95.0-98.0); ABG OXYHEMOGLOBIN 94.9 % (94.0-100.0); ABG PCO2 43 mmHg (35-45); ABG PH 7.435 (7.35-7.450); ABG TOTAL HEMOGLOBIN 14.4 G/dL (12.0-18.0); PO2, ARTERIAL BG 77.6 mmHg (79.0-87.0); SOURCE, BLOOD GAS ARTERIAL; TEMPERATURE, FAHRENHEIT, BG 98.2 FAHREN (96.0-98.6)
[2019-09-02 17:40] LABS: O2 DEVICE,BLOOD GAS VENTILATOR (ROOM AIR); PEEP,BG 5 cm H2O; PRESSURE SUPPORT, BG 10 cm H2O; SITE, BLOOD GAS RT RADIAL; VENT MODE, BG CPAP (ROOM AIR)
[2019-09-02] MEDS: HYDROCODONE/ACETAMINOPHEN 5-325 MG TABLET PO PRN (18:08)
[2019-09-02] MEDS: AZITHROMYCIN 500 MG/NS 250 ML IV SCH (18:08)
[2019-09-02] MEDS: VANCOMYCIN HCL 750 MG in DEXTROSE 5%-WATER 250 ML IV SCH (19:55)
[2019-09-02 20:00] VITALS: BP 132/60
[2019-09-02] MEDS: INSULIN GLARGINE,HUM.REC.ANLOG 100 UNITS/ML SQ SCH (20:21)
[2019-09-02] MEDS: HYPROMELLOSE 0.5% 15 ML OPHTHALMIC SOLUTION OU PRN ×2 (20:53→23:24)
[2019-09-02] MEDS: MethylPREDNISolone SOD SUCC 40 MG/ML VIAL IVP SCH (23:24)
[2019-09-03] VITALS (8 sets, daily range): BP systolic 128–173; BP diastolic 52–85
[2019-09-03] MEDS: PROPOFOL 1000 MG/ISO-OSM 100 ML IV PRN ×4 (00:31→20:09)
[2019-09-03 00:39] LABS: GLUCOSE,POINT OF CARE 282 MG/DL (70-110)
[2019-09-03 00:39] LABS: GLUCOSE,POINT OF CARE 323 MG/DL (70-110)
[2019-09-03 00:39] LABS: GLUCOSE,POINT OF CARE 291 MG/DL (70-110)
[2019-09-03 00:39] LABS: GLUCOSE,POINT OF CARE 299 MG/DL (70-110)
[2019-09-03] MEDS ORDERED: SODIUM CHLORIDE 0.9% 500 ML IV ONE (01:18)
[2019-09-03] MEDS: FentaNYL CITRATE PF 500 MCG in DEXTROSE 5%-WATER 90 ML IV PRN ×2 (01:43→20:09)
[2019-09-03] MEDS: IPRATROPIUM BROMIDE 0.5 MG/2.5 ML NEB SOLUTION NEB SCH ×4 (02:26→20:08)
[2019-09-03] MEDS: ALBUTEROL SULFATE 2.5 MG/0.5 ML NEB SOLUTION NEB SCH ×4 (02:26→20:08)
[2019-09-03] MEDS: PIPERACILLIN/TAZO 3.375 GM/D5W 50 ML IV SCH ×4 (03:18→22:05)
[2019-09-03] MEDS: HYPROMELLOSE 0.5% 15 ML OPHTHALMIC SOLUTION OU PRN (04:18)
[2019-09-03] MEDS: MethylPREDNISolone SOD SUCC 40 MG/ML VIAL IVP SCH ×3 (05:03→17:31)
[2019-09-03] MEDS: INSULIN LISPRO 100 UNITS/ML SQ PRN ×3 (05:10→21:19)
[2019-09-03 06:07] LABS: GLUCOSE,POINT OF CARE 285 MG/DL (70-110)
[2019-09-03 06:16] LABS: EOSINOPHILS % (AUTO) 0 % (1.0-6.0); HEMATOCRIT 41.5 % (41-53); HEMOGLOBIN 13.3 g/dL (13.5-17.5); LYMPHOCYTES # (AUTO) 0.6 K/uL (1.0-4.8); LYMPHOCYTES % (AUTO) 3.2 % (22.0-44.0); MEAN CORPUSCULAR HEMOGLOBIN 29.4 pg (26.0-34.0); MEAN CORPUSCULAR HGB CONC 32.1 G/dL (31.0-37.0); MEAN CORPUSCULAR VOLUME 92 fL (80-100); MONOCYTES % (AUTO) 5.8 % (2.0-9.0); NEUTROPHILS # (AUTO) 15.6 K/uL (1.8-7.7); RED BLOOD CELL COUNT(AUTO) 4.53 MIL/uL (4.50-5.90); RED CELL DISTRIBUTION WIDTH 13.8 % (11.5-14.5)
[2019-09-03 06:25] LABS: ANION GAP 6 mmol/L (8-16); CALCIUM, TOTAL 7.4 mg/dL (8.8-10.5); CARBON DIOXIDE 30 mmol/L (22-29); CHLORIDE 105 mmol/L (98-107); CREATININE 0.98 mg/dL (0.60-1.30); GLOMERULAR FILTR. RATE CALC > 60 mL/min (>60); GLUCOSE,RANDOM 314 mg/dL (70-110); PHOSPHORUS 3.1 mg/dL (2.5-4.9); POTASSIUM 5.3 mmol/L (3.5-5.1); SODIUM SERUM 141 mmol/L (136-145); UREA NITROGEN, BLOOD 35 mg/dL (7-18)
[2019-09-03 07:00] LABS: PLATELET COUNT (AUTO) 101 K/uL (150-450)
[2019-09-03] MEDS: VANCOMYCIN HCL 750 MG in DEXTROSE 5%-WATER 250 ML IV SCH ×2 (08:05→20:13)
[2019-09-03] MEDS: DOCUSATE SODIUM 100 MG CAPSULE PO SCH ×2 (09:00→20:10)
[2019-09-03] MEDS: PANTOPRAZOLE SODIUM 40 MG DR TABLET PO SCH (09:12)
[2019-09-03] MEDS: GuaiFENesin SR 600 MG ER TABLET PO SCH ×2 (09:12→20:09)
[2019-09-03] MEDS: BENZONATATE 100 MG CAPSULE PO SCH ×3 (09:12→20:09)
[2019-09-03] MEDS ORDERED: INSULIN GLARGINE,HUM.REC.ANLOG 100 UNITS/ML SQ SCH (09:45)
[2019-09-03 13:18] LABS: GLUCOSE,POINT OF CARE 287 MG/DL (70-110)
[2019-09-03] MEDS: AZITHROMYCIN 500 MG/NS 250 ML IV SCH (17:31)
[2019-09-03] MEDS: INSULIN GLARGINE,HUM.REC.ANLOG 100 UNITS/ML SQ SCH (21:18)
[2019-09-03] MEDS: HYDROCODONE/ACETAMINOPHEN 5-325 MG TABLET PO PRN (22:05)
[2019-09-04] VITALS: BP 125/61
[2019-09-04] MEDS: MethylPREDNISolone SOD SUCC 40 MG/ML VIAL IVP SCH ×5 (00:47→23:39)
[2019-09-04] MEDS: INSULIN LISPRO 100 UNITS/ML SQ PRN ×2 (00:50→06:34)
[2019-09-04] MEDS: PROPOFOL 1000 MG/ISO-OSM 100 ML IV PRN ×5 (01:20→21:46)
[2019-09-04] MEDS: ALBUTEROL SULFATE 2.5 MG/0.5 ML NEB SOLUTION NEB SCH ×4 (02:00→20:23)
[2019-09-04] MEDS: IPRATROPIUM BROMIDE 0.5 MG/2.5 ML NEB SOLUTION NEB SCH ×4 (02:00→20:23)
[2019-09-04 04:00] VITALS: BP 119/57
[2019-09-04] MEDS: PIPERACILLIN/TAZO 3.375 GM/D5W 50 ML IV SCH ×2 (04:00→10:25)
[2019-09-04 06:24] LABS: BASOPHILS % (AUTO) 0.1 % (0.0-2.0); EOSINOPHILS % (AUTO) 0 % (1.0-6.0); HEMATOCRIT 40.9 % (41-53); HEMOGLOBIN 13.3 g/dL (13.5-17.5); LYMPHOCYTES # (AUTO) 0.5 K/uL (1.0-4.8); LYMPHOCYTES % (AUTO) 3.5 % (22.0-44.0); MEAN CORPUSCULAR HEMOGLOBIN 29.7 pg (26.0-34.0); MEAN CORPUSCULAR HGB CONC 32.5 G/dL (31.0-37.0); MEAN CORPUSCULAR VOLUME 91 fL (80-100); MONOCYTES % (AUTO) 6.7 % (2.0-9.0); NEUTROPHILS # (AUTO) 12.9 K/uL (1.8-7.7); PLATELET COUNT (AUTO) 147 K/uL (150-450); RED BLOOD CELL COUNT(AUTO) 4.47 MIL/uL (4.50-5.90); RED CELL DISTRIBUTION WIDTH 13.6 % (11.5-14.5)
[2019-09-04 06:40] LABS: ALANINE AMINOTRANSFERASE 383 U/L (12-78); ALBUMIN 2.2 g/dL (3.4-5.0); ALKALINE PHOSPHATASE 91 U/L (46-116); ANION GAP 3 mmol/L (8-16); ASPARTATE AMINOTRANSFERASE 41 U/L (15-37); BILIRUBIN,TOTAL 0.5 mg/dL (0.1-1.0); CALCIUM, TOTAL 8.2 mg/dL (8.8-10.5); CARBON DIOXIDE 32 mmol/L (22-29); CHLORIDE 101 mmol/L (98-107); CREATININE 0.92 mg/dL (0.60-1.30); GLOMERULAR FILTR. RATE CALC > 60 mL/min (>60); GLUCOSE,RANDOM 277 mg/dL (70-110); SODIUM SERUM 136 mmol/L (136-145); TOTAL PROTEIN, SERUM 5.5 g/dL (6.4-8.2); UREA NITROGEN, BLOOD 27 mg/dL (7-18); VANCOMYCIN,RANDOM 12.8 mcg/mL (25.0-50.0)
[2019-09-04 06:47] LABS: NEUTROPHILS % (AUTO) 89.7 % (40.0-70.0)
[2019-09-04 06:53] LABS: GLUCOSE,POINT OF CARE 250 MG/DL (70-110)
[2019-09-04 06:53] LABS: GLUCOSE,POINT OF CARE 277 MG/DL (70-110)
[2019-09-04 06:53] LABS: GLUCOSE,POINT OF CARE 236 MG/DL (70-110)
[2019-09-04 06:53] LABS: GLUCOSE,POINT OF CARE 301 MG/DL (70-110)
[2019-09-04 08:00] VITALS: BP 174/78
[2019-09-04] MEDS ORDERED: DEXTROSE 50%-WATER 25 GM/50 ML SYRINGE IVP PRN (08:00)
[2019-09-04] MEDS: APIXABAN 5 MG TABLET PO SCH ×2 (08:11→21:00)
[2019-09-04] MEDS: DOCUSATE SODIUM 100 MG CAPSULE PO SCH ×2 (08:11→21:00)
[2019-09-04] MEDS: BENZONATATE 100 MG CAPSULE PO SCH ×3 (08:11→21:46)
[2019-09-04] MEDS: PANTOPRAZOLE SODIUM 40 MG DR TABLET PO SCH (08:11)
[2019-09-04] MEDS: GuaiFENesin SR 600 MG ER TABLET PO SCH ×2 (08:11→21:46)
[2019-09-04] MEDS: VANCOMYCIN HCL 750 MG in DEXTROSE 5%-WATER 250 ML IV SCH (08:12)
[2019-09-04] MEDS: INSULIN GLARGINE,HUM.REC.ANLOG 100 UNITS/ML SQ SCH ×2 (08:16→22:11)
[2019-09-04] MEDS: FentaNYL CITRATE PF 500 MCG in DEXTROSE 5%-WATER 90 ML IV PRN (10:26)
[2019-09-04] MEDS: INSULIN REGULAR, HUMAN 100 UNITS/ML SQ PRN ×3 (11:30→23:52)
[2019-09-04 12:00] VITALS: BP 111/54
[2019-09-04 14:40] LABS: ABG A-A DIFF O2 110.1 mmHg (10-20.0); ABG BASE EXCESS 5.2 mmol/L (-2.0-3.0); ABG CARBOXYHEMOGLOBIN 0.8 % (0.0-1.5); ABG HCO3 27.9 mmol/L (22.0-26.0); ABG METHEMOGLOBIN 0.3 % (0.0-1.5); ABG OXYGEN CONTENT 19.5 mL/dL (15.0-23.0); ABG OXYGEN SATURATION 95.4 % (95.0-98.0); ABG OXYHEMOGLOBIN 94.4 % (94.0-100.0); ABG PCO2 53 mmHg (35-45); ABG PH 7.379 (7.35-7.450); ABG TOTAL HEMOGLOBIN 14.7 G/dL (12.0-18.0); CPAP, BG 5 cm H2O; O2 DEVICE,BLOOD GAS VENTILATOR (ROOM AIR); PO2, ARTERIAL BG 78.2 mmHg (79.0-87.0); PRESSURE SUPPORT, BG 8 cm H2O; SITE, BLOOD GAS RT RADIAL; SOURCE, BLOOD GAS ARTERIAL; TEMPERATURE, FAHRENHEIT, BG 98.7 FAHREN (96.0-98.6); VENT MODE, BG CPAP (ROOM AIR)
[2019-09-04 15:09] LABS: GLUCOSE,POINT OF CARE 322 MG/DL (70-110)
[2019-09-04] MEDS: CefTRIAXone SODIUM 2 GM in DEXTROSE 5%-WATER 50 ML IV SCH (15:50)
[2019-09-04 16:00] VITALS: BP 115/58
[2019-09-04] MEDS ORDERED: SODIUM CHLORIDE 0.9% 500 ML IV ONE (17:12)
[2019-09-04] MEDS: AZITHROMYCIN 500 MG/NS 250 ML IV SCH (17:16)
[2019-09-04 17:51] LABS: GLUCOSE,POINT OF CARE 290 MG/DL (70-110)
[2019-09-04 18:52] LABS: LEGIONELLA PNEUMO AG URINE Negative (Negative); ORGANISM ID Not indicated.; S PNEUMO SOURCE Urine; STREP PNEUMONIAE AG URINE Negative (Negative); STREP.PNEUMO BODY FLUID CULT. Not indicated.
[2019-09-04 20:00] VITALS: BP 137/71
[2019-09-04] MEDS ORDERED: VANCOMYCIN HCL 1.25 GM in DEXTROSE 5%-WATER 250 ML IV SCH (20:00)
[2019-09-04] MEDS ORDERED: SODIUM CHLORIDE 0.9% 250 ML IV ONE (21:39)
[2019-09-05] VITALS (7 sets, daily range): BP systolic 98–157; BP diastolic 50–88
[2019-09-05 00:04] LABS: GLUCOSE,POINT OF CARE 245 MG/DL (70-110)
[2019-09-05 00:04] LABS: GLUCOSE,POINT OF CARE 223 MG/DL (70-110)
[2019-09-05] MEDS: FentaNYL CITRATE PF 500 MCG in DEXTROSE 5%-WATER 90 ML IV PRN ×3 (00:32→19:59)
[2019-09-05] MEDS: IPRATROPIUM BROMIDE 0.5 MG/2.5 ML NEB SOLUTION NEB SCH ×4 (02:15→19:59)
[2019-09-05] MEDS: ALBUTEROL SULFATE 2.5 MG/0.5 ML NEB SOLUTION NEB SCH ×4 (02:15→19:59)
[2019-09-05] MEDS: PROPOFOL 1000 MG/ISO-OSM 100 ML IV PRN ×4 (03:05→19:59)
[2019-09-05] MEDS: INSULIN REGULAR, HUMAN 100 UNITS/ML SQ PRN ×4 (06:22→23:39)
[2019-09-05] MEDS: MethylPREDNISolone SOD SUCC 40 MG/ML VIAL IVP SCH ×4 (06:23→23:26)
[2019-09-05 06:50] LABS: ANION GAP 1 mmol/L (8-16); CALCIUM, TOTAL 8.7 mg/dL (8.8-10.5); CARBON DIOXIDE 33 mmol/L (22-29); CHLORIDE 101 mmol/L (98-107); CREATININE 0.88 mg/dL (0.60-1.30); GLOMERULAR FILTR. RATE CALC > 60 mL/min (>60); GLUCOSE,RANDOM 293 mg/dL (70-110); POTASSIUM 4.8 mmol/L (3.5-5.1); SODIUM SERUM 135 mmol/L (136-145); UREA NITROGEN, BLOOD 29 mg/dL (7-18)
[2019-09-05 06:52] LABS: BASOPHILS % (AUTO) 0.1 % (0.0-2.0); EOSINOPHILS % (AUTO) 0.1 % (1.0-6.0); HEMATOCRIT 42.2 % (41-53); HEMOGLOBIN 13.8 g/dL (13.5-17.5); LYMPHOCYTES # (AUTO) 0.5 K/uL (1.0-4.8); LYMPHOCYTES % (AUTO) 3.1 % (22.0-44.0); MEAN CORPUSCULAR HGB CONC 32.8 G/dL (31.0-37.0); MEAN CORPUSCULAR VOLUME 92 fL (80-100); MONOCYTES # (AUTO) 0.9 K/uL (0.1-1.0); MONOCYTES % (AUTO) 5.3 % (2.0-9.0); PLATELET COUNT (AUTO) 151 K/uL (150-450); RED BLOOD CELL COUNT(AUTO) 4.62 MIL/uL (4.50-5.90); RED CELL DISTRIBUTION WIDTH 13.7 % (11.5-14.5)
[2019-09-05 06:54] LABS: NEUTROPHILS % (AUTO) 91.4 % (40.0-70.0)
[2019-09-05 06:54] LABS: GLUCOSE,POINT OF CARE 308 MG/DL (70-110)
[2019-09-05] MEDS: DOCUSATE SODIUM 100 MG CAPSULE PO SCH ×2 (07:51→21:00)
[2019-09-05] MEDS: GuaiFENesin SR 600 MG ER TABLET PO SCH ×2 (08:37→21:40)
[2019-09-05] MEDS: PANTOPRAZOLE SODIUM 40 MG DR TABLET PO SCH (08:37)
[2019-09-05] MEDS: BENZONATATE 100 MG CAPSULE PO SCH ×3 (08:37→21:40)
[2019-09-05] MEDS: APIXABAN 5 MG TABLET PO SCH ×2 (08:38→21:40)
[2019-09-05] MEDS: INSULIN GLARGINE,HUM.REC.ANLOG 100 UNITS/ML SQ SCH (08:56)
[2019-09-05 09:40] LABS: INR 1.1 (0.9-1.1); PROTHROMBIN TIME 11.2 SEC (9.4-11.6)
[2019-09-05] MEDS: CefTRIAXone SODIUM 2 GM in DEXTROSE 5%-WATER 50 ML IV SCH (15:27)
[2019-09-05 16:43] LABS: GLUCOSE,POINT OF CARE 312 MG/DL (70-110)
[2019-09-05 16:43] LABS: GLUCOSE,POINT OF CARE 287 MG/DL (70-110)
[2019-09-05 18:10] LABS: GLUCOSE,POINT OF CARE 339 MG/DL (70-110)
[2019-09-05] MEDS ORDERED: INSULIN GLARGINE,HUM.REC.ANLOG 100 UNITS/ML SQ SCH (21:00)
[2019-09-06] VITALS (9 sets, daily range): BP systolic 104–146; BP diastolic 55–89
[2019-09-06] MEDS: PROPOFOL 1000 MG/ISO-OSM 100 ML IV PRN ×3 (02:18→11:51)
[2019-09-06] MEDS: ALBUTEROL SULFATE 2.5 MG/0.5 ML NEB SOLUTION NEB SCH ×4 (03:38→21:01)
[2019-09-06] MEDS: IPRATROPIUM BROMIDE 0.5 MG/2.5 ML NEB SOLUTION NEB SCH ×4 (03:38→21:01)
[2019-09-06] MEDS: MethylPREDNISolone SOD SUCC 40 MG/ML VIAL IVP SCH ×3 (05:17→18:17)
[2019-09-06] MEDS: INSULIN REGULAR, HUMAN 100 UNITS/ML SQ PRN ×3 (05:18→21:50)
[2019-09-06] MEDS: FentaNYL CITRATE PF 500 MCG in DEXTROSE 5%-WATER 90 ML IV PRN ×2 (06:01→15:40)
[2019-09-06 06:11] LABS: ANION GAP 4 mmol/L (8-16); CALCIUM, TOTAL 8.5 mg/dL (8.8-10.5); CARBON DIOXIDE 32 mmol/L (22-29); CHLORIDE 100 mmol/L (98-107); GLOMERULAR FILTR. RATE CALC > 60 mL/min (>60); GLUCOSE,RANDOM 304 mg/dL (70-110); PHOSPHORUS 4.5 mg/dL (2.5-4.9); POTASSIUM 4.6 mmol/L (3.5-5.1); SODIUM SERUM 136 mmol/L (136-145); UREA NITROGEN, BLOOD 31 mg/dL (7-18)
[2019-09-06] MEDS: DOCUSATE SODIUM 100 MG CAPSULE PO SCH ×2 (09:00→21:00)
[2019-09-06] MEDS: APIXABAN 5 MG TABLET PO SCH ×2 (09:00→21:00)
[2019-09-06] MEDS: BENZONATATE 100 MG CAPSULE PO SCH ×3 (09:24→21:00)
[2019-09-06] MEDS: GuaiFENesin SR 600 MG ER TABLET PO SCH ×2 (09:24→21:00)
[2019-09-06] MEDS: PANTOPRAZOLE SODIUM 40 MG DR TABLET PO SCH (09:24)
[2019-09-06] MEDS: INSULIN GLARGINE,HUM.REC.ANLOG 100 UNITS/ML SQ SCH ×2 (09:26→21:48)
[2019-09-06 10:03] LABS: GLUCOSE,POINT OF CARE 277 MG/DL (70-110)
[2019-09-06 10:03] LABS: GLUCOSE,POINT OF CARE 268 MG/DL (70-110)
[2019-09-06 10:03] LABS: GLUCOSE,POINT OF CARE 275 MG/DL (70-110)
[2019-09-06 13:47] LABS: GLUCOSE,POINT OF CARE 283 MG/DL (70-110)
[2019-09-06] MEDS: CefTRIAXone SODIUM 2 GM in DEXTROSE 5%-WATER 50 ML IV SCH (16:05)
[2019-09-06 16:50] LABS: ABG A-A DIFF O2 119.9 mmHg (10-20.0); ABG BASE EXCESS 7.8 mmol/L (-2.0-3.0); ABG CARBOXYHEMOGLOBIN 0.9 % (0.0-1.5); ABG HCO3 30.6 mmol/L (22.0-26.0); ABG METHEMOGLOBIN 0.3 % (0.0-1.5); ABG OXYGEN CONTENT 19.7 mL/dL (15.0-23.0); ABG OXYGEN SATURATION 95.7 % (95.0-98.0); ABG OXYHEMOGLOBIN 94.6 % (94.0-100.0); ABG PCO2 46 mmHg (35-45); ABG PH 7.459 (7.35-7.450); ABG TOTAL HEMOGLOBIN 14.8 G/dL (12.0-18.0); PO2, ARTERIAL BG 76.6 mmHg (79.0-87.0); SOURCE, BLOOD GAS ARTERIAL; TEMPERATURE, FAHRENHEIT, BG 98.6 FAHREN (96.0-98.6)
[2019-09-06 16:51] LABS: CPAP, BG 0 cm H2O; O2 DEVICE,BLOOD GAS VENTILATOR (ROOM AIR); PEEP,BG 0 cm H2O; PRESSURE SUPPORT, BG 8 cm H2O; SITE, BLOOD GAS RT RADIAL; SPONTANEOUS VT, BG 425 ml; VENT MODE, BG SPONTANEOUS (ROOM AIR)
[2019-09-06 18:54] LABS: GLUCOSE,POINT OF CARE 266 MG/DL (70-110)
[2019-09-06 21:27] LABS: GLUCOSE,POINT OF CARE 248 MG/DL (70-110)
[2019-09-06] MEDS: DEXTROSE 5%-0.9% SODIUM CHL 1,000 ML IV SCH (21:42)
[2019-09-07] VITALS (7 sets, daily range): BP systolic 133–161; BP diastolic 63–75
[2019-09-07] MEDS: INSULIN REGULAR, HUMAN 100 UNITS/ML SQ PRN ×2 (00:35→22:49)
[2019-09-07] MEDS: MethylPREDNISolone SOD SUCC 40 MG/ML VIAL IVP SCH ×4 (00:37→18:32)
[2019-09-07] MEDS: ALBUTEROL SULFATE 2.5 MG/0.5 ML NEB SOLUTION NEB SCH ×4 (01:52→20:08)
[2019-09-07] MEDS: IPRATROPIUM BROMIDE 0.5 MG/2.5 ML NEB SOLUTION NEB SCH ×4 (01:52→20:08)
[2019-09-07 01:59] LABS: GLUCOSE,POINT OF CARE 178 MG/DL (70-110)
[2019-09-07 05:10] LABS: GLUCOSE,POINT OF CARE 109 MG/DL (70-110)
[2019-09-07 05:30] LABS: ANION GAP 5 mmol/L (8-16); CALCIUM, TOTAL 8.4 mg/dL (8.8-10.5); CARBON DIOXIDE 33 mmol/L (22-29); CHLORIDE 101 mmol/L (98-107); CREATININE 0.89 mg/dL (0.60-1.30); GLOMERULAR FILTR. RATE CALC > 60 mL/min (>60); GLUCOSE,RANDOM 106 mg/dL (70-110); POTASSIUM 4.1 mmol/L (3.5-5.1); SODIUM SERUM 139 mmol/L (136-145); UREA NITROGEN, BLOOD 29 mg/dL (7-18)
[2019-09-07] MEDS: DOCUSATE SODIUM 100 MG CAPSULE PO SCH ×2 (09:00→22:27)
[2019-09-07] MEDS: APIXABAN 5 MG TABLET PO SCH ×2 (09:20→21:00)
[2019-09-07] MEDS: BENZONATATE 100 MG CAPSULE PO SCH ×3 (09:20→22:27)
[2019-09-07] MEDS: GuaiFENesin SR 600 MG ER TABLET PO SCH ×2 (09:20→22:27)
[2019-09-07] MEDS: PANTOPRAZOLE SODIUM 40 MG DR TABLET PO SCH (09:20)
[2019-09-07] MEDS: INSULIN GLARGINE,HUM.REC.ANLOG 100 UNITS/ML SQ SCH ×2 (09:23→22:48)
[2019-09-07 13:58] LABS: APPEARANCE,URINE CLEAR (CLEAR); BILIRUBIN,URINE NEGATIVE (NEGATIVE); GLUCOSE, URINE (UA) NEGATIVE (NEGATIVE); KETONES,URINE NEGATIVE (NEGATIVE); LEUKOCYTE ESTERASE ,URINE NEGATIVE (NEGATIVE); NITRATE,URINE NEGATIVE (NEGATIVE); OCCULT BLOOD,URINE MODERATE (NEGATIVE); PH,URINE 7.5 (5.0-8.0); PROTEIN,URINE NEGATIVE (NEGATIVE); UROBILINOGEN,URINE 0.2 mg/dL (<=1.0)
[2019-09-07 14:04] LABS: BACTERIA,URINE None Seen /HPF (None Seen); SQUAMOUS EPITHELIAL CELL,UR Few /LPF (None Seen); WBC,URINE 0-2 /HPF (0-5)
[2019-09-07] MEDS: DEXTROSE 5%-0.9% SODIUM CHL 1,000 ML IV SCH (15:11)
[2019-09-07] MEDS: CefTRIAXone SODIUM 2 GM in DEXTROSE 5%-WATER 50 ML IV SCH (15:13)
[2019-09-07 16:19] LABS: GLUCOSE,POINT OF CARE 100 MG/DL (70-110)
[2019-09-07 19:43] LABS: GLUCOMETER DEV NAME(LOC) 5S.2A; GLUCOSE,POINT OF CARE 156 MG/DL (70-110)
[2019-09-07 22:51] LABS: GLUCOMETER DEV NAME(LOC) 5S.2A; GLUCOSE,POINT OF CARE 197 MG/DL (70-110)
[2019-09-08] MEDS: MethylPREDNISolone SOD SUCC 40 MG/ML VIAL IVP SCH ×2 (01:01→06:34)
[2019-09-08] MEDS: ALBUTEROL SULFATE 2.5 MG/0.5 ML NEB SOLUTION NEB SCH ×4 (02:43→20:10)
[2019-09-08] MEDS: IPRATROPIUM BROMIDE 0.5 MG/2.5 ML NEB SOLUTION NEB SCH ×4 (02:43→20:10)
[2019-09-08 03:57] VITALS: BP 143/75
[2019-09-08 06:06] LABS: GLUCOMETER DEV NAME(LOC) 5S.2A; GLUCOSE,POINT OF CARE 168 MG/DL (70-110)
[2019-09-08] MEDS: DEXTROSE 5%-0.9% SODIUM CHL 1,000 ML IV SCH (06:34)
[2019-09-08 06:46] LABS: ANION GAP 4 mmol/L (8-16); CALCIUM, TOTAL 8.4 mg/dL (8.8-10.5); CARBON DIOXIDE 33 mmol/L (22-29); CHLORIDE 101 mmol/L (98-107); CREATININE 0.94 mg/dL (0.60-1.30); GLOMERULAR FILTR. RATE CALC > 60 mL/min (>60); GLUCOSE,RANDOM 192 mg/dL (70-110); POTASSIUM 4.2 mmol/L (3.5-5.1); SODIUM SERUM 138 mmol/L (136-145); UREA NITROGEN, BLOOD 26 mg/dL (7-18)
[2019-09-08] MEDS: INSULIN REGULAR, HUMAN 100 UNITS/ML SQ PRN ×2 (07:02→22:00)
[2019-09-08 07:39] VITALS: BP 153/74
[2019-09-08] MEDS: PANTOPRAZOLE SODIUM 40 MG DR TABLET PO SCH (07:55)
[2019-09-08] MEDS: BENZONATATE 100 MG CAPSULE PO SCH ×3 (07:55→21:49)
[2019-09-08] MEDS: GuaiFENesin SR 600 MG ER TABLET PO SCH ×2 (07:55→21:50)
[2019-09-08] MEDS: DOCUSATE SODIUM 100 MG CAPSULE PO SCH ×2 (07:55→21:00)
[2019-09-08] MEDS: APIXABAN 5 MG TABLET PO SCH ×2 (07:55→22:09)
[2019-09-08] MEDS: INSULIN GLARGINE,HUM.REC.ANLOG 100 UNITS/ML SQ SCH ×2 (07:55→22:03)
[2019-09-08 11:13] VITALS: BP 148/68
[2019-09-08] MEDS: PredniSONE 20 MG TABLET PO SCH (12:56)
[2019-09-08 15:39] VITALS: BP 143/77
[2019-09-08] MEDS: CefTRIAXone SODIUM 2 GM in DEXTROSE 5%-WATER 50 ML IV SCH (16:26)
[2019-09-08 20:17] VITALS: BP 136/87
[2019-09-08 22:18] LABS: GLUCOMETER DEV NAME(LOC) 5S.2A; GLUCOSE,POINT OF CARE 251 MG/DL (70-110)
[2019-09-08 22:18] LABS: GLUCOMETER DEV NAME(LOC) 5S.2A; GLUCOSE,POINT OF CARE 125 MG/DL (70-110)
[2019-09-08 23:06] VITALS: BP 159/79
[2019-09-09 02:26] LABS: GLUCOMETER DEV NAME(LOC) 5N.2; GLUCOSE,POINT OF CARE 132 MG/DL (70-110)
[2019-09-09] MEDS: IPRATROPIUM BROMIDE 0.5 MG/2.5 ML NEB SOLUTION NEB SCH ×3 (02:52→15:24)
[2019-09-09] MEDS: ALBUTEROL SULFATE 2.5 MG/0.5 ML NEB SOLUTION NEB SCH ×3 (02:52→15:23)
[2019-09-09 03:36] VITALS: BP 145/74
[2019-09-09 06:24] LABS: GLUCOMETER DEV NAME(LOC) 5S.2A; GLUCOSE,POINT OF CARE 68 MG/DL (70-110)
[2019-09-09 06:59] LABS: ANION GAP 5 mmol/L (8-16); CALCIUM, TOTAL 8.1 mg/dL (8.8-10.5); CARBON DIOXIDE 33 mmol/L (22-29); CHLORIDE 105 mmol/L (98-107); CREATININE 0.87 mg/dL (0.60-1.30); GLOMERULAR FILTR. RATE CALC > 60 mL/min (>60); GLUCOSE,RANDOM 66 mg/dL (70-110); POTASSIUM 3.7 mmol/L (3.5-5.1); SODIUM SERUM 143 mmol/L (136-145); UREA NITROGEN, BLOOD 25 mg/dL (7-18)
[2019-09-09] MEDS: DOCUSATE SODIUM 100 MG CAPSULE PO SCH (07:59)
[2019-09-09] MEDS: BENZONATATE 100 MG CAPSULE PO SCH ×2 (07:59→16:00)
[2019-09-09] MEDS: PredniSONE 20 MG TABLET PO SCH (08:01)
[2019-09-09] MEDS: PANTOPRAZOLE SODIUM 40 MG DR TABLET PO SCH (08:05)
[2019-09-09] MEDS: GuaiFENesin SR 600 MG ER TABLET PO SCH (08:05)
[2019-09-09] MEDS: APIXABAN 5 MG TABLET PO SCH (08:09)
[2019-09-09] MEDS: INSULIN GLARGINE,HUM.REC.ANLOG 100 UNITS/ML SQ SCH (08:12)
[2019-09-09] MEDS ORDERED: LOPERAMIDE HCL 2 MG CAPSULE PO PRN (11:00)
[2019-09-09 11:40] VITALS: BP 132/65
[2019-09-09 11:47] LABS: BASOPHILS % (AUTO) 0.4 % (0.0-2.0); EOSINOPHILS % (AUTO) 0.5 % (1.0-6.0); HEMOGLOBIN 14.3 g/dL (13.5-17.5); LYMPHOCYTES # (AUTO) 2.8 K/uL (1.0-4.8); MEAN CORPUSCULAR HEMOGLOBIN 29.2 pg (26.0-34.0); MEAN CORPUSCULAR HGB CONC 32.4 G/dL (31.0-37.0); MEAN CORPUSCULAR VOLUME 90 fL (80-100); MONOCYTES # (AUTO) 1.6 K/uL (0.1-1.0); MONOCYTES % (AUTO) 10.6 % (2.0-9.0); NEUTROPHILS # (AUTO) 10.3 K/uL (1.8-7.7); NEUTROPHILS % (AUTO) 69.5 % (40.0-70.0); PLATELET COUNT (AUTO) 225 K/uL (150-450); RED BLOOD CELL COUNT(AUTO) 4.88 MIL/uL (4.50-5.90); RED CELL DISTRIBUTION WIDTH 13.7 % (11.5-14.5)
[2019-09-09 12:20] LABS: GLUCOMETER DEV NAME(LOC) 5S.1; GLUCOSE,POINT OF CARE 156 MG/DL (70-110)
[2019-09-09] MEDS: INSULIN REGULAR, HUMAN 100 UNITS/ML SQ PRN (12:38)
[2019-09-09] MEDS ORDERED: ALBU8HFA IH (14:24)
[2019-09-09] MEDS ORDERED: APIX5TAB PO (14:25)
[2019-09-09] MEDS: CefTRIAXone SODIUM 2 GM in DEXTROSE 5%-WATER 50 ML IV SCH (16:00)
[2019-09-09 16:49] VITALS: BP 140/70
== END 2019-09-09 17:00 | disposition home or self-care (01) | DRG 870 ==
LOC: EMS 10:15 → ICUN 19:50 → EDBD 19:50 → ICU 09-03 19:20 → 5S 09-07 17:45
PROVIDERS: ADMIT Internal Medicine; ATTEND Internal Medicine
PROC: 5A09357 Assistance with Respiratory Ventilation, Less than 24 Consecutive Hours, Continuous Positive Airway Pressure (ICD-10-PCS; principal; 2019-08-29)
PROC: 5A1955Z Respiratory Ventilation, Greater than 96 Consecutive Hours (ICD-10-PCS; 2019-08-29)
PROC: 0BH17EZ Insertion of Endotracheal Airway into Trachea, Via Natural or Artificial Opening (ICD-10-PCS; 2019-08-29)
DX: A41.9 Sepsis, unspecified organism (principal); J96.02 Acute respiratory failure with hypercapnia; J69.0 Pneumonitis due to inhalation of food and vomit; R65.21 Severe sepsis with septic shock; N17.0 Acute kidney failure with tubular necrosis; G93.41 Metabolic encephalopathy; E43 Unspecified severe protein-calorie malnutrition; J96.01 Acute respiratory failure with hypoxia; I21.A1 Myocardial infarction type 2; I50.41 Acute combined systolic (congestive) and diastolic (congestive) heart failure; J10.08 Influenza due to other identified influenza virus with other specified pneumonia; J14 Pneumonia due to Hemophilus influenzae; E87.1 Hypo-osmolality and hyponatremia; E87.2 Acidosis; J44.1 Chronic obstructive pulmonary disease with (acute) exacerbation; M62.82 Rhabdomyolysis; A15.0 Tuberculosis of lung; I76 Septic arterial embolism; J44.0 Chronic obstructive pulmonary disease with (acute) lower respiratory infection; I82.402 Acute embolism and thrombosis of unspecified deep veins of left lower extremity; Z99.11 Dependence on respirator [ventilator] status; D17.0 Benign lipomatous neoplasm of skin and subcutaneous tissue of head, face and neck; E11.65 Type 2 diabetes mellitus with hyperglycemia; K72.90 Hepatic failure, unspecified without coma; Z59.0 Homelessness; Z28.21 Immunization not carried out because of patient refusal; Z78.9 Other specified health status; Z79.4 Long term (current) use of insulin; Z87.891 Personal history of nicotine dependence
CPT/HCPCS: 36600; 70450; 71250; 72192; 74150; 82271; 82570; 82805; 83605; 83735; 84100; 84145; 84300; 85379; 86171; 86480; 86738; 87015; 87040; 87070; 87081; 87101; 87205; 87206; 87252; 87305; 87389; 87449; 87556; 87635; 87798; 87804; 87899; 92526; 92610; 93005; 93306; 93970; 94002; 94003; 94640; 94644; 94660; 97110; 97116; 97162; 97166; 97530; 97535; 99291; G0378; J0330; J0456; J0696; J1644; J1815; J2060; J2370; J2543; J2704; J2920; J2930; J3010; J3370; J3411; J3490; J7030; J7040; J7042; J7050; J7060

== ENCOUNTER 2024-04-02 19:27 | Inpatient (IN) | payer MEDICAID, OTHER ==
[~2024-04-02] VITALS: Ht 157.5 cm; Wt 56.6 kg
[~2024-04-02 19:27] MED LIST: ALBU18HF12 IH; APIX5TAB PO
[2024-04-02 20:00] VITALS: PULSE 80; RESP 18; O2SAT 95
[2024-04-02] MEDS: ALBUTEROL SULFATE 2.5 MG/0.5 ML NEB SOLUTION NEB ONE (20:01)
[2024-04-02] MEDS: IPRATROPIUM BROMIDE 0.5 MG/2.5 ML NEB SOLUTION NEB ONE (20:01)
[2024-04-02] MEDS: MethylPREDNISolone SOD SUCC 125 MG/2 ML VIAL IVP ONE (20:07)
[2024-04-02 20:15] VITALS: PULSE 86; RESP 16; O2SAT 97
[2024-04-02 20:29] LABS: TROPONIN I-HIGH SENSITIVITY 8 ng/L (<76)
[2024-04-02 20:38] LABS: COVID AG,FIA SOURCE NASAL SWAB
[2024-04-02 20:55] LABS: SARS-COV2 (COVID) ANTIGEN,FIA Negative (Negative)
[2024-04-02 21:05] LABS: BASOPHILS % (AUTO) 0.4 % (0.0-2.0); HEMATOCRIT 43.9 % (41-53); HEMOGLOBIN 14.4 g/dL (13.5-17.5); LYMPHOCYTES # (AUTO) 2.3 K/uL (1.0-4.8); LYMPHOCYTES % (AUTO) 10.9 % (22.0-44.0); MEAN CORPUSCULAR HEMOGLOBIN 29.6 pg (26.0-34.0); MEAN CORPUSCULAR HGB CONC 32.7 G/dL (31.0-37.0); MEAN CORPUSCULAR VOLUME 91 fL (80-100); MONOCYTES # (AUTO) 1.7 K/uL (0.1-1.0); MONOCYTES % (AUTO) 8.2 % (2.0-9.0); NEUTROPHILS # (AUTO) 16.6 K/uL (1.8-7.7); NEUTROPHILS % (AUTO) 78.5 % (40.0-70.0); PLATELET COUNT (AUTO) 233 K/uL (150-450); RED BLOOD CELL COUNT(AUTO) 4.85 MIL/uL (4.50-5.90); RED CELL DISTRIBUTION WIDTH 13.2 % (11.5-14.5); WHITE BLOOD COUNT (AUTO) 21.2 K/uL (4.5-11.0)
[2024-04-02] MEDS: NALOXONE HCL 1 MG/ML 2 ML SYRINGE IVP ONE (21:11)
[2024-04-02 21:14] LABS: ANION GAP 9 mmol/L (8-16); CALCIUM, TOTAL 8.5 mg/dL (8.8-10.5); CARBON DIOXIDE 26 mmol/L (22-29); CHLORIDE 104 mmol/L (98-107); CREATININE 1.06 mg/dL (0.60-1.30); GLOMERULAR FILTR. RATE CALC > 60 mL/min (>60); GLUCOSE,RANDOM 287 mg/dL (70-110); POTASSIUM 3.2 mmol/L (3.5-5.1); SODIUM SERUM 139 mmol/L (136-145); UREA NITROGEN, BLOOD 25 mg/dL (7-18)
[2024-04-02 21:15] LABS: ALCOHOL, URINE DRUG SCREEN NEGATIVE (NEGATIVE); AMPHET/METH SCREEN,URINE NEGATIVE (NEGATIVE); BARBITURATE SCREEN, URINE NEGATIVE (NEGATIVE); BENZODIAZEPINES SCREEN,URINE NEGATIVE (NEGATIVE); CANNABINOID SCREEN,URINE NEGATIVE (NEGATIVE); COCAINE SCREEN,URINE NEGATIVE (NEGATIVE); METHADONE SCREEN, URINE NEGATIVE (NEGATIVE); OPIATE SCREEN,URINE NEGATIVE (NEGATIVE); PHENCYCLIDINE SCREEN,URINE NEGATIVE (NEGATIVE)
[2024-04-02 21:17] LABS: ALCOHOL, BLOOD (SERUM) < 3 mg/dL (0-10)
[2024-04-02 21:21] LABS: B-TYPE NATRIURETIC PEPTIDE < 5 pg/mL (0-100)
[2024-04-02 21:33] LABS: ALANINE AMINOTRANSFERASE 22 U/L (12-78); ALKALINE PHOSPHATASE 97 U/L (46-116); ASPARTATE AMINOTRANSFERASE 26 U/L (15-37); BILIRUBIN,TOTAL 0.4 mg/dL (0.1-1.0); CREATINE KINASE, TOTAL ONLY 206 U/L (39-308); TOTAL PROTEIN, SERUM 7.6 g/dL (6.4-8.2)
[2024-04-02] MEDS ORDERED: IPRATROPIUM BROMIDE 0.5 MG/2.5 ML NEB SOLUTION NEB PRN (22:15)
[2024-04-02] MEDS ORDERED: BISACODYL 10 MG RECTAL RECTAL SUPPOSITORY PR PRN (22:15)
[2024-04-02] MEDS ORDERED: ACETAMINOPHEN 325 MG TABLET PO PRN (22:15)
[2024-04-02] MEDS ORDERED: ALBUTEROL SULFATE 2.5 MG/0.5 ML NEB SOLUTION NEB PRN (22:15)
[2024-04-02] MEDS ORDERED: MAGNESIUM HYDROXIDE SUSPENSION 30 ML UDCUP PO PRN (22:15)
[2024-04-02] MEDS ORDERED: ZOLPIDEM TARTRATE 5 MG TABLET PO PRN (22:15)
[2024-04-02] MEDS ORDERED: ONDANSETRON HCL 4 MG/2 ML VIAL IVP PRN (22:15)
[2024-04-02] MEDS: SODIUM CHLORIDE 0.9% 1,000 ML IV ONE (22:17)
[2024-04-02] MEDS: CefTRIAXone 1 GM/DEXTROSE 50 ML IV SCH (22:52)
[2024-04-02] MEDS: HEPARIN SODIUM,PORCINE 5,000 UNITS/ML VIAL SQ SCH (23:38)
[2024-04-02] MEDS: MethylPREDNISolone SOD SUCC 125 MG/2 ML VIAL IVP SCH (23:38)
[2024-04-02] MEDS: AZITHROMYCIN 500 MG/NS 250 ML IV SCH (23:39)
[2024-04-03] VITALS (15 sets, daily range): BP systolic 107–129; BP diastolic 54–76; PULSE 71–103; RESP 12–20; TEMP 98–98.8; O2SAT 93–100
[2024-04-03] MEDS: ALBUTEROL SULFATE 2.5 MG/0.5 ML NEB SOLUTION NEB SCH (03:24)
[2024-04-03] MEDS: IPRATROPIUM BROMIDE 0.5 MG/2.5 ML NEB SOLUTION NEB SCH (03:24)
[2024-04-03 05:53] LABS: ANION GAP 6 mmol/L (8-16); CALCIUM, TOTAL 8.3 mg/dL (8.8-10.5); CARBON DIOXIDE 27 mmol/L (22-29); CHLORIDE 104 mmol/L (98-107); CREATININE 1.05 mg/dL (0.60-1.30); GLOMERULAR FILTR. RATE CALC > 60 mL/min (>60); GLUCOSE,RANDOM 304 mg/dL (70-110); SODIUM SERUM 137 mmol/L (136-145); UREA NITROGEN, BLOOD 27 mg/dL (7-18)
[2024-04-03 06:02] LABS: BASOPHILS % (AUTO) 0.1 % (0.0-2.0); EOSINOPHILS % (AUTO) 0 % (1.0-6.0); HEMATOCRIT 41.3 % (41-53); LYMPHOCYTES # (AUTO) 0.4 K/uL (1.0-4.8); MEAN CORPUSCULAR HEMOGLOBIN 30.4 pg (26.0-34.0); MEAN CORPUSCULAR HGB CONC 33.9 G/dL (31.0-37.0); MEAN CORPUSCULAR VOLUME 90 fL (80-100); MONOCYTES # (AUTO) 0.6 K/uL (0.1-1.0); MONOCYTES % (AUTO) 3.5 % (2.0-9.0); NEUTROPHILS # (AUTO) 16.8 K/uL (1.8-7.7); PLATELET COUNT (AUTO) 174 K/uL (150-450); RED CELL DISTRIBUTION WIDTH 13.2 % (11.5-14.5); WHITE BLOOD COUNT (AUTO) 17.8 K/uL (4.5-11.0)
[2024-04-03 06:03] LABS: NEUTROPHILS % (AUTO) 94.4 % (40.0-70.0)
[2024-04-03] MEDS: BENZONATATE 100 MG CAPSULE PO SCH (08:49)
[2024-04-03] MEDS: PANTOPRAZOLE SODIUM 40 MG DR TABLET PO SCH (08:49)
[2024-04-03] MEDS: GuaiFENesin SR 600 MG ER TABLET PO SCH (08:49)
[2024-04-03] MEDS: DOCUSATE SODIUM 100 MG CAPSULE PO SCH (08:50)
[2024-04-04] VITALS (8 sets, daily range): BP systolic 100–120; BP diastolic 50–65; PULSE 68–98; RESP 14–21; TEMP 97.8–98.5; O2SAT 95–100
[2024-04-04 07:02] LABS: BASOPHILS % (AUTO) 0.3 % (0.0-2.0); EOSINOPHILS % (AUTO) 0 % (1.0-6.0); HEMATOCRIT 39.3 % (41-53); HEMOGLOBIN 13.1 g/dL (13.5-17.5); LYMPHOCYTES # (AUTO) 0.7 K/uL (1.0-4.8); LYMPHOCYTES % (AUTO) 3.7 % (22.0-44.0); MEAN CORPUSCULAR HGB CONC 33.3 G/dL (31.0-37.0); MEAN CORPUSCULAR VOLUME 90 fL (80-100); MONOCYTES # (AUTO) 0.6 K/uL (0.1-1.0); MONOCYTES % (AUTO) 3.1 % (2.0-9.0); NEUTROPHILS # (AUTO) 17.4 K/uL (1.8-7.7); PLATELET COUNT (AUTO) 176 K/uL (150-450); RED BLOOD CELL COUNT(AUTO) 4.36 MIL/uL (4.50-5.90); WHITE BLOOD COUNT (AUTO) 18.8 K/uL (4.5-11.0)
[2024-04-04 07:03] LABS: NEUTROPHILS % (AUTO) 92.9 % (40.0-70.0)
[2024-04-04 07:19] LABS: ANION GAP 8 mmol/L (8-16); CALCIUM, TOTAL 8.7 mg/dL (8.8-10.5); CARBON DIOXIDE 25 mmol/L (22-29); CHLORIDE 104 mmol/L (98-107); CREATININE 0.95 mg/dL (0.60-1.30); GLOMERULAR FILTR. RATE CALC > 60 mL/min (>60); GLUCOSE,RANDOM 222 mg/dL (70-110); POTASSIUM 3.9 mmol/L (3.5-5.1); SODIUM SERUM 137 mmol/L (136-145); UREA NITROGEN, BLOOD 34 mg/dL (7-18)
[2024-04-04 07:26] LABS: RBC MORPHOLOGY COMMENT NORMAL RBC MORPH
[2024-04-05 03:32] VITALS: BP 129/66; PULSE 70; RESP 18; TEMP 98.5; O2SAT 98
[2024-04-05 07:21] LABS: BASOPHILS % (AUTO) 0.2 % (0.0-2.0); EOSINOPHILS % (AUTO) 0.1 % (1.0-6.0); HEMATOCRIT 37.9 % (41-53); HEMOGLOBIN 12.6 g/dL (13.5-17.5); LYMPHOCYTES # (AUTO) 0.9 K/uL (1.0-4.8); LYMPHOCYTES % (AUTO) 4.7 % (22.0-44.0); MEAN CORPUSCULAR HEMOGLOBIN 29.9 pg (26.0-34.0); MEAN CORPUSCULAR HGB CONC 33.3 G/dL (31.0-37.0); MEAN CORPUSCULAR VOLUME 90 fL (80-100); MONOCYTES # (AUTO) 1.2 K/uL (0.1-1.0); MONOCYTES % (AUTO) 6.5 % (2.0-9.0); NEUTROPHILS # (AUTO) 16.8 K/uL (1.8-7.7); PLATELET COUNT (AUTO) 156 K/uL (150-450); RED BLOOD CELL COUNT(AUTO) 4.21 MIL/uL (4.50-5.90); RED CELL DISTRIBUTION WIDTH 13.1 % (11.5-14.5)
[2024-04-05 07:22] LABS: NEUTROPHILS % (AUTO) 88.5 % (40.0-70.0)
[2024-04-05 07:24] LABS: ANION GAP 5 mmol/L (8-16); CALCIUM, TOTAL 8.5 mg/dL (8.8-10.5); CARBON DIOXIDE 26 mmol/L (22-29); CHLORIDE 105 mmol/L (98-107); CREATININE 1.02 mg/dL (0.60-1.30); GLOMERULAR FILTR. RATE CALC > 60 mL/min (>60); GLUCOSE,RANDOM 208 mg/dL (70-110); POTASSIUM 4.1 mmol/L (3.5-5.1); SODIUM SERUM 136 mmol/L (136-145); UREA NITROGEN, BLOOD 34 mg/dL (7-18)
[2024-04-05 08:20] VITALS: PULSE 85; RESP 16; O2SAT 97
[2024-04-05 08:35] VITALS: PULSE 73; RESP 16; O2SAT 100
[2024-04-05 08:53] VITALS: BP 123/69; PULSE 76; RESP 17; TEMP 98.1; O2SAT 96
[2024-04-05] MEDS ORDERED: ALBU18HF12 IH (10:09)
[2024-04-05] MEDS ORDERED: PRED-729 PO (10:09)
== END 2024-04-05 13:25 | disposition home or self-care (01) | DRG 812 ==
LOC: EMS 19:27 → EDH 22:08 → ICU 04-03 02:29 → 5N 04-03 23:00 → 6S 04-04 18:45
PROVIDERS: ADMIT Internal Medicine; ATTEND Internal Medicine
DX: T40.411A Poisoning by fentanyl or fentanyl analogs, accidental (unintentional), initial encounter (principal); J96.01 Acute respiratory failure with hypoxia; G92.9 Unspecified toxic encephalopathy; J45.901 Unspecified asthma with (acute) exacerbation; E87.6 Hypokalemia; Z20.822 Contact with and (suspected) exposure to COVID-19; J44.9 Chronic obstructive pulmonary disease, unspecified; F17.210 Nicotine dependence, cigarettes, uncomplicated; R73.9 Hyperglycemia, unspecified; F19.10 Other psychoactive substance abuse, uncomplicated; D72.829 Elevated white blood cell count, unspecified; Z59.00 Homelessness unspecified; Z91.199 Patient's noncompliance with other medical treatment and regimen due to unspecified reason; Y92.89 Other specified places as the place of occurrence of the external cause
CPT/HCPCS: 71045; 80048; 80053; 80307; 82550; 83880; 84484; 85025; 87040; 87081; 93005; 94640; 99285; G0378; G0480; J0456; J0696; J1644; J2310; J2919; J7030; 36415-L1; 36415-TC; J7613